=== PATIENT | male | born 1950 | race Caucasian/White ===

== ENCOUNTER 2025-08-01 19:07 | Emergency (ER) | payer MEDICARE ==
[2025-08-01] MEDS ORDERED: Lidocaine Viscous Sol 2% 15 ml UD Cup ONE (19:27)
[2025-08-01 19:52] LABS: Glucose, Urine (Dipstick) 500 mg/dL (Negative); Leukocyte Negative (Negative); Protein, Urine (Dipstick) Negative (Neg-Trace); Specific Gravity, Urine 1.010 (1.005-1.030)
[2025-08-01 19:54] LABS: Bacteria/HPF Rare-Few HPF (None Seen); CAUTI Indications for Culture Dysuria,urgency,freq; RBC/HPF 0-3 HPF (0-3); WBC/HPF 0-3 HPF (0-3)
[2025-08-01 19:55] LABS: Urine Culture Reflex No No
== END 2025-08-01 20:30 | disposition home or self-care (01) ==
LOC: BURERS 19:07
DX: R33.9 Retention of urine, unspecified (principal); I10 Essential (primary) hypertension; E11.9 Type 2 diabetes mellitus without complications; E78.5 Hyperlipidemia, unspecified; I48.91 Unspecified atrial fibrillation; Z79.01 Long term (current) use of anticoagulants
CPT/HCPCS: 51702; 81001; 99284